=== PATIENT | female | born 1980 | race Caucasian/White ===

== ENCOUNTER 2018-05-18 10:53 | Observation (INO) | payer MEDICAID ==
[~2018-05-18] VITALS: Ht 170.2 cm; Wt 72.0 kg
[2018-05-18 11:18] LABS: MICROSCOPIC AUTO
[2018-05-18] MEDS ORDERED: SODIUM CHLORIDE FLUSH 10ML SYR IVF ONE (12:00)
[2018-05-18 12:12] LABS: BASOPHILS # (AUTO) 0.02 x10^3/uL (0-0.1); BASOPHILS % (AUTO) 0 % (0-1); EOSINOPHILS # (AUTO) 0.03 x10^3/uL (0-0.4); EOSINOPHILS % (AUTO) 0 % (1-7); LYMPHOCYTES # (AUTO) 1.37 x10^3/uL (1-3.4); LYMPHOCYTES % (AUTO) 14 % (22-44); MD NO; MEAN CORPUSCULAR HEMOGLOBIN 27.7 pg (27.0-34.8); MEAN CORPUSCULAR HGB CONC 33.8 g/dL (32.4-35.8); MEAN PLATELET VOLUME 8.4 fL (7.4-10.4); MONOCYTES # (AUTO) 0.66 x10^3/uL (0.2-0.8); MONOCYTES % (AUTO) 7 % (2-9); NEUTROPHILS # (AUTO) 7.99 x10^3/uL (1.8-6.8); NEUTROPHILS % (AUTO) 79 % (42-75); PLATELET COUNT 193 x10^3/uL (130-400); RED BLOOD COUNT 4.57 x10^6/uL (3.82-5.3)
[2018-05-18 12:18] LABS: ALANINE AMINOTRANSFERASE 18 U/L (12-78); ALBUMIN 3.8 g/dL (3.4-5.0); ANION GAP 7 mmol/L (5-15); CALCIUM 8.3 mg/dL (8.5-10.1); CHLORIDE 111 mmol/L (98-107); CREATININE 1.05 mg/dL (0.55-1.02)
[2018-05-18 12:23] LABS: ALKALINE PHOSPHATASE 55 U/L (45-117); BILIRUBIN,TOTAL 0.5 mg/dL (0.2-1.0); TOTAL PROTEIN 7.2 g/dL (6.4-8.2)
[2018-05-18] MEDS ORDERED: MORPHINE SULFATE 4 MG/ML, 1ML IVPush PRN (13:00)
[2018-05-18] MEDS ORDERED: CEFOTETAN PMX 1GM/50ML 50 ML ONE (14:43)
[2018-05-18] MEDS ORDERED: MORPHINE SULFATE 4 MG/ML, 1ML ONE (14:56)
[2018-05-18] MEDS ORDERED: CEFOTETAN PMX 1GM/50ML 50 ML IV ONE (15:00)
[2018-05-18 15:30] VITALS: BP 106/54
[2018-05-18] MEDS ORDERED: MIDAZOLAM 1 MG/ML, 2ML ONE (16:22)
[2018-05-18] MEDS ORDERED: FENTANYL PF 100 MCG/2ML ONE ×3 (16:22→18:21)
[2018-05-18] MEDS ORDERED: BUPIVACAINE/PF-EPI 0.5% 1:200K ONE (16:44)
[2018-05-18] MEDS ORDERED: GLYCOPYRROLATE 0.2MG/1ML, 5ML ONE ×2 (16:53)
[2018-05-18] MEDS ORDERED: NEOSTIGMINE 1 MG/ML, 10ML ONE (16:53)
[2018-05-18] MEDS ORDERED: ONDANSETRON 2MG/ML, 2ML ONE (16:53)
[2018-05-18] MEDS ORDERED: SUCCINYLCHOLINE 20 MG/ML, 10ML ONE (16:53)
[2018-05-18] MEDS ORDERED: ROCURONIUM 10 MG/ML,10ML ONE (16:53)
[2018-05-18] MEDS ORDERED: PROPOFOL 10 MG/ML, 20ML ONE (16:53)
[2018-05-18] MEDS ORDERED: DEXAMETHASONE 4 MG/ML, 1ML ONE (16:53)
[2018-05-18] MEDS ORDERED: CEFOTETAN 1 GM ONE (16:53)
[2018-05-18] MEDS ORDERED: ACETAMINOPHEN 325 MG TABLET PO PRN (17:00)
[2018-05-18] MEDS ORDERED: MEPERIDINE/PF 25MG/0.5ML IVPush PRN (17:00)
[2018-05-18] MEDS ORDERED: FENTANYL PF 100 MCG/2ML IV PRN (17:00)
[2018-05-18] MEDS ORDERED: HYDROmorphone 1 MG/ML, 1ML IV PRN (17:00)
[2018-05-18] MEDS ORDERED: DIAZEPAM 5 MG/ML, 2ML IVPush PRN (17:00)
[2018-05-18] MEDS ORDERED: ONDANSETRON 2MG/ML, 2ML IV PRN (17:00)
[2018-05-18] MEDS ORDERED: ONDANSETRON ODT 8 MG PO PRN (17:00)
[2018-05-18] MEDS: LACTATED RINGERS 1,000 ML IV SCH (17:37)
[2018-05-18] MEDS ORDERED: OXYcodone 5 MG/5 ML ORAL.SOL UDC ONE ×2 (17:51→18:26)
[2018-05-18] MEDS ORDERED: ACETAMINOPHEN 650 MG/20.3 ML UDC ONE (17:51)
[2018-05-18] MEDS: OXYcodone 5 MG/5 ML ORAL.SOL UDC PO PRN ×2 (17:53→18:28)
[2018-05-18] MEDS ORDERED: MEPERIDINE/PF 50 MG/ML ONE (17:58)
[2018-05-18] MEDS ORDERED: ONDANSETRON 2MG/ML, 2ML IVPush PRN (18:00)
[2018-05-18] MEDS ORDERED: KETOROLAC 30 MG/1 ML IVPush PRN (18:00)
[2018-05-18] MEDS ORDERED: morphine SULFATE 10 MG/ML, 1ML IVPush PRN (18:00)
[2018-05-18 18:45] VITALS: BP 96/65
[2018-05-18] MEDS: HYDROcodone/APAP 5/325 TABLET PO PRN (23:05)
[2018-05-19 02:58] VITALS: BP 94/51
[2018-05-19] MEDS: LACTATED RINGERS 1,000 ML IV SCH (03:37)
[2018-05-19] MEDS: HYDROcodone/APAP 5/325 TABLET PO PRN ×2 (05:33→09:06)
[2018-05-19] MEDS ORDERED: CEFOTETAN PMX 1GM/50ML 50 ML IV ONE (06:00)
[2018-05-19 07:52] VITALS: BP 96/61
[2018-05-19] MEDS ORDERED: HYDR-3240 PO (08:38)
== END 2018-05-19 09:44 | disposition home or self-care (01) ==
LOC: ED 13:26 → INTOOBSV 13:27 → EDIP 13:27 → 4NOR 15:20 → DCLOUNGE 05-19 09:25
PROVIDERS: ADMIT Thoracic Surgery (Cardiothoracic Vascular Surgery); ATTEND Thoracic Surgery (Cardiothoracic Vascular Surgery)
DX: K35.30 Acute appendicitis with localized peritonitis, without perforation or gangrene (principal); N73.6 Female pelvic peritoneal adhesions (postinfective)
CPT/HCPCS: 36415; 44970; 76830; 80053; 81001; 81025; 83690; 84703; 85025; 88304; 96365; 96366; 96375; 99285; G0378; J0330; J1100; J2175; J2250; J2405; J2704; J2710; J3010; J3490; 96374